=== PATIENT | female | born 1970 | race African-American/Black ===

== ENCOUNTER 2017-03-11 20:16 | Emergency (ER) | payer OTHER ==
[~2017-03-11] VITALS: Ht 162.6 cm; Wt 90.7 kg
[2017-03-11] MEDS ORDERED: NKM (20:26)
[2017-03-11] MEDS ORDERED: AUGMENTIN 875-1 EAC1 ORAL (20:38)
[2017-03-11] MEDS ORDERED: IBUPROFEN600 MG ORAL (20:38)
--- NOTE | 2017-03-11 20:41 | Emergency Room Report ---
History of Present Illness General Chief Complaint: Sore Throat Source: Patient Present Illness HPI Patient present with complaints of sore throat Ongoing for the past 5 days Pain is worse with swallowing 6/10 Sharp denies in change in voice denies any short of breath denies any chest pain or back pain Denies any posterior neck pain or photophobia Allergies: Coded Allergies: No Known Allergies (Unverified , 03/11/17) Patient History Past Medical History: see triage record Pertinent Family History: none Last Menstrual Period: n/a hysterectomy 2012 Now: No Reviewed Nursing Documentation: PMH: Agreed, PSxH: Agreed Nursing Documentation-PMH Past Medical History: No History, Except For Hx Asthma: Yes Review of Systems All Other Systems: negative except mentioned in HPI Physical Exam Vital Signs Date Time Temp Pulse Resp B/P Pulse Ox O2 Delivery O2 Flow Rate FiO2 03/11/17 20:22 98.1 87 16 131/84 98 Room Air Sp02 EP Interpretation: reviewed, normal General Appearance: well appearing, no apparent distress Head: normocephalic, atraumatic Eyes: bilateral eye EOMI, bilateral eye PERRL ENT: hearing grossly normal, TMs + canals normal, uvula midline, tonsillar exudate Neck: full range of motion, supple, no meningismus, no bony tend Respiratory: lungs clear, normal breath sounds, no rhonchi, no respiratory distress, no retraction, no accessory muscle use Cardiovascular #1: normal peripheral pulses, regular rate, rhythm, no edema, no gallop, no JVD, no murmur Gastrointestinal: normal bowel sounds, non tender, soft, no mass, no organomegaly, non-distended, no guarding, no hernia, no pulsatile mass, no rebound Genitourinary: no CVA tenderness Musculoskeletal: normal inspection Neurologic: oriented x3, responsive, commercial director III-XII nml as tested, motor strength/ tone normal, sensory intact Psychiatric: mood/affect normal Skin: normal color, no rash, warm/dry, palpation normal Lymphatic: normal inspection, no adenopathy Medical Decision Making Diagnostic Impression: Primary Impression: pharyngitis ER Course Patient has clinical signs of pharyngitis likely strep No signs of any peritonsillar abscess Suspicion for retropharyngeal abscesses low Patient initiated on antibiotics and will have close outpatient followup Last Vital Signs Date Time Temp Pulse Resp B/P Pulse Ox O2 Delivery O2 Flow Rate FiO2 03/11/17 20:22 98.1 87 16 131/84 98 Room Air Status: unchanged Disposition: HOME, SELF-CARE Condition: Stable Scripts Ibuprofen* (MOTRIN*) 600 Mg Tablet 600 MG ORAL Q8H Y for For Pain, #20 TAB 0 Refills Prov: ROSELIA NASH D.O. 03/11/17 Amoxicillin/Potassium Clav 875-125* (AUGMENTIN 875-125 TABLET*) 1 Each Tablet 1 TAB ORAL TWICE A DAY, #20 TAB Prov: ROSELIA NASH D.O. 03/11/17 Patient Instructions: Pharyngitis, [id number] Additional Instructions: Patient is provided with the discharge instructions notified to follow up with primary doctor in the next 2-3 days otherwise return to the er with any worsening symptoms. Please note that this report is being documented using [employer] technology. This can lead to erroneous entry secondary to incorrect interpretation by the dictating instrument. ROSELIA NASH D.O. Mar 11, 2017 20:41
[2017-03-11 20:48] VITALS: BP 110/69
== END 2017-03-11 21:07 | disposition home or self-care (01) ==
LOC: EMR 20:52
DX: J02.9 Acute pharyngitis, unspecified (principal); Z90.710 Acquired absence of both cervix and uterus
CPT/HCPCS: 99284